=== PATIENT | female | born 1955 | race Hispanic/Latino ===

== ENCOUNTER 2018-06-19 08:16 | Emergency (ER) | payer OTHER ==
--- OUTSIDE RECORDS SUMMARY | 2018-06-19 08:19 | XMS REPORT | Summary of Care ---
:1955 Author Organization [facility] Address [address] [place] [id number]- Encounter HQ Kayleentr_luis manuel(FIN) [id number] Date(s): 02/15/17 - 02/15/[address] [address]- Discharge Disposition: Home or Self Care Attending Physician: Carlos Zhu MD Admitting Physician: Carlos Zhu MD Vital Signs No data available for this section Problem List Condition Effective Dates Status Health Status Informant HTN - Hypertension(Confirmed) Active OA - Osteoarthritis(Confirmed) Active Allergies, Adverse Reactions, Alerts Substance Reaction Severity Status NKDA Active Medications No data available for this section Results No data available for this section Immunizations No data available for this section Procedures Procedure Date Related Diagnosis Body Site Procedure on knee1 1bilateral Social History Social History Type Response Smoking Status Never smoker; Exposure to Tobacco Smoke None; Cigarette Smoking Last 365 Days No; Reg Smoking Cessation Counseling No Assessment and Plan No data available for this section
--- OUTSIDE RECORDS SUMMARY | 2018-06-19 08:19 | XMS REPORT | Continuity of Care Document ---
:1955 Author Organization Interface Problems Problem Status Onset Classification Date Comments Source Date Reported [id number]--UOIW KNEE Active 07/21/[address] LEFT KNEE PAIN Active 03/29/[address] 719.46 Active 03/29/[address] LEFT KNEE 715.96 Active 03/29/[address] HTN - Hypertension Active Problem 02/18/2017 [facility] OA - Active Problem 02/18/2017 [facility] Medications Medication Details Route Status Patient Ordering Order Source Instructions Provider Date Sodium Chloride 25 mL, Route: Inactive 0.9% IV IV, Start date: 2014 [facility] 08/01/[address] [facility] 11:25:00, Duration: 30 day, Stop date: 08/31/14 11:24:00, PRN Line Flush BD Normal Saline 10 mL, Route: Inactive Flush IV, Drug Form: 2014 [facility] INJ, PRN, PRN [facility] Line Flush, Start date: 08/01/14 11:25:00, Duration: 30 day, Stop date: 08/31/14 11:24:00Notes: (Same as: BD Posiflush) Tranexamic Acid 1 gm, Route: IV, Inactive Drug form: ANDREA 2014 [facility] ONCE, Dosing [facility] Weight 74.545, kg, Start date: 08/01/14 10:12:00, Stop date: 08/01/14 10:12:00 Aspirin 325 MG 325 mg=1 tab, Active Oral Tablet PO, BID, Take 1 2014 [facility] tablet at [address] [facility] and 8 PM with food for 14 days at home--this is being used as a blood thinner, # 28 tab, 0 Refill(s)Special Instructions: Take 1 tablet at 8 AM and 8 PM with food for 14 days at home--this is being used as a blood thinner Ancef 2 gm, 100 mL, Inactive Route: IVPB, 2014 [facility] Drug form: INJ, City ONCE, Dosing Weight 74.545, kg, Start date: 08/01/14 9:23:00, Duration: 1 doses or times, Stop date: 08/01/14 9:23:00Notes: Same as: Ancef Acetaminophen 325 1-2 tab, PO, Active MG / Hydrocodone Q4-6H, PRN Pain, 2014 [facility] Bitartrate 10 MG # 40 tab, [address] [facility] Oral Tablet Refill(s) [[place] 10/325] ropivacaine 100 mL, Route: Inactive InFILtration([facility] 2014 [facility] al), Drug Form: [facility] INJ, Dosing Weight 74.545, kg, ONCALL, Start date: 08/01/14 8:55:00, Duration: 30 day, Stop date: 08/31/14 8:54:00 Promethazine 6.25 mg, 0.25 Inactive mL, Route: IVPB, 2014 [facility] ONCE, Dosing [facility] Weight 74.545, kg, PRN Nausea & Vomiting, Start date: 08/01/14 7:28:00Notes: Do not give IV push. (Same as: Phenergan) Ondansetron 4 mg, 2 mL, Inactive Route: IVP, Drug 2014 [facility] form: INJ, ONCE, [facility] Dosing Weight 74.545, kg, PRN Nausea & Vomiting, Start date: 08/01/14 7:28:00Notes: (Same as: Zofran) MEDICATION WASTE Product Size: 4 mg Product Wasted: ___ mg Diphenhydramine 12.5 mg, 0.25 Inactive mL, Route: IVP, 2014 [facility] Drug form: INJ, City Q6H, Dosing Weight 74.545, kg, PRN Itching, Start date: 08/01/14 7:28:00, Duration: 30 day, Stop date: 08/31/14 7:27:00Notes: (Same as: Benadryl) Flumazenil 0.2 mg, 2 mL, Inactive Route: IVP, Drug 2014 [facility] form: INJ, PRN, [facility] Dosing Weight 74.545, kg, PRN Benzodiazepine Reversal, Initial dose, Start date: 08/01/14 7:28:00, Duration: 30 day, Stop date: 08/31/14 7:27:00Notes: (Same as: Romazicon) Naloxone 0.04 mg, 0.1 mL, Inactive Route: IVP, Drug 2014 [facility] form: INJ, City Q2MIN, Dosing Weight 74.545, kg, PRN Narcotic Reversal, Start date: 08/01/14 7:28:00, Duration: 8 doses or times, Stop date: Limited # of timesNotes: Same as Narcan Morphine 2 mg, 0.2 mL, Inactive Route: IVP, Drug 2014 [facility] form: INJ, City Q5Min, Dosing Weight 74.545, kg, PRN Pain Score 4-6, Start date: 08/01/14 7:28:00, Duration: 5 doses or times, Stop date: Limited # of timesNotes: (Same as:MORPhine Sulfate) Meperidine 12.5 mg, 0.25 Inactive mL, Route: IVP, 2014 [facility] Drug form: INJ, City Q30Min, Dosing Weight 74.545, kg, PRN Other -See Comment, For shivering, Start date: 08/01/14 7:28:00, Duration: 2 doses or times, Stop date: Limited # of timesNotes: (Same As: Demerol) Hydromorphone 0.5 mg, 0.25 mL, Inactive Route: IVP, Drug 2014 [facility] form: INJ, City Q5Min, Dosing Weight 74.545, kg, PRN Pain Score 7-10, Start date: 08/01/14 7:28:00, Duration: 4 doses or times, Stop date: Limited # of timesNotes: (Same as: Dilaudid) ceFAZolin 2 gm, 100 mL, Inactive Route: IVPB, 2014 [facility] Drug form: INJ, City ONCALL, Start date: 08/01/14 2:00:00, Duration: 19 hr, Stop date: 08/01/14 20:59:00Notes: Same as: Ancef cholesterol cholesterol Active [employer] [facility], 2014 [facility] Refill(s) [address] [facility] vimovo 500mg vimovo 500mg, No Longer Refill(s) 0 Active 2014 [facility] carvedilol 25 mg 25 mg=1 tab, PO, Active oral tablet Q12H, # 60 tab, 2014 [facility] 0 Refill(s) [facility] Allergies, Adverse Reactions, Alerts Substance Category Reaction Severity Reaction Status Date Comments Source type Reported Immunizations Immunization Date Given Site Status Last Updated Comments Source Results Order Name Results Value Reference Date Interpretation Comments Source Range Knee 1-2 Knee 1-2 EXAMINATION: Left knee AP and lateral. 02/15 - Views Views /2016 - [facility] unilateral [facility] DX DX HISTORY: Left knee pain; left knee arthritis Read by: Santana Stevens MD Dictated Date/time: 02/15/17 12:51 Electronically Signed by: Santana Stevens MD 02/15/17 12:52 FINAL REPORT FINDINGS: Frontal and lateral views of the left knee are performed and compared to 08/10/2014. There is a medial compartment, unicompartmental knee arthroplasty in unchanged near-anatomic alignment without periprosthetic fracture or osteolysis. There is progressive moderate patellofemoral compart ment osteoarthritis characterized by asymmetric joint space narrowing, subchondral sclerosis, and osteophytosis. The lateral joint space is normal. There is no substantial knee effusion. IMPRESSION: 1. Medial compartment, unit compartmental left knee arthroplasty in unchanged anatomic alignment. 2. Progressive moderate patellofemoral compartment osteoarthritis of the left knee. Knee 1-2 Knee 1-2 Left knee x-ray 2 views 08/10 - Views Views /2014 - [facility] DX DX Clinical History: Postsurgical evaluation. Read by: Valentin Samuels MD Dictated Date/time: 08/10/14 12:28 Electronically Signed by: Valentin Duke 08/10/14 12:30 FINAL REPORT Comparison: 06/04/2014. Left knee medial compartment hemiprosthesis in place. Femoral and tibial components are well aligned. There is no evidence for hardware failure. A small knee effusion is present. Patellofemoral and late ral knee compartments are maintained. A staple line projects over anterior medial knee. Impression: Status post left knee medial hemiprosthesis in good alignment. CHEM PANEL Glucose Lvl 101 mg/dL 70 - 99 07/27 1Interpretive Data: Adult reference range values reflect the clinical guidelines of the [place] [employer]. [facility] ELECTROLYTE Potassium 4.5 meq/L 3.5 - 5.1 07/27 S Lvl /2014 [facility] ELECTROLYTE Sodium Lvl 144 meq/L 135 - 145 07/27 S /2014 [facility] HEMATOLOGY Hgb 13.8 g/dL 12.0 - 07/27 MH 16.0 /2014 [facility] HEMATOLOGY Hct 40.9 % 36.0 - 07/27 MH 48.0 /2014 [facility] BACTERIAL - MRSA by PCR Negative 2 07/27 2Interpretive Data: Interpretive Data: The [employer] LightCycler MRSA assay is a qualitative test for the direct detection of nasal colonization with methicillin-resistant Staphylococcus aureus (MRSA) to aid in the prevention and control of MRSA infections in healthcare settings. A positive result does not indicate an infection or require treatment. A negative result does not exclude colonization or infection. [facility] (07/27/14 10:20 AM) [facility] The polymerase chain reaction (PCR) assay detects a proprietary sequence indicative of the integration of the SCCmec cassette into the Staphylococcus aureus chromosome, indicating the presence of MRSA D NA. The assay utilizes FDA cleared IVD reagents. Performance characteristics have been verified by the [facility] the [facility]. The [facility] at[facility] is authorized under the Clinical Laboratory Improvement Amendment of 1988 (CLIA-88) to perform high complexity testing. Knee 4+ Knee 4+ EXAM: 06/04 - views views - [facility] unilateral unilateral 4 view(s) of the left knee. [facility] DX DX Read by: Vince Dietrich MD Dictated Date/time: 06/04/14 15:39 INDICATION: Electronically Signed by: Vince Dietrich MD 06/04/14 15:44 FINAL REPORT Pain. COMPARISON: June 16, 2013 x-ray.. FINDINGS: Fracture: No acute fracture or dislocation. Soft tissues: No large soft tissue swelling or joint effusion. Medial compartment: Moderate to severe joint space narrowing. Mild to moderate subchondral sclerosis and osteophytes. This is substantial progressed. Lateral compartment: Intact. Patellofemoral compartment: Mild joint space narrowing. This is mildly progressed. Alignment: Straightened to mildly varus. IMPRESSION: 1. No acute fracture. 2. Progressed moderate to severe medial compartment degenerative change. Knee 3 Knee 3 Exam: Left knee x-ray, 4 views 06/16 - views /2013 - [facility] Reason for Exam: Pain Read by: Malcolm Rabago Dictated Date/time: 06/16/13 12:07 Electronically Signed by: Malcolm Rabago MD 06/16/13 12:08 FINAL REPORT Comparison Exam: None Discussion: No fractures or dislocations are seen of the left knee. Mild joint space narrowing seen within the medial compartment. No intraosseous lesions. No radiopaque foreign bodies. Impression: 1. Mild joint space narrowing seen within the medial compartment. Vital Signs Vital Sign Value Date Comments Source Respitory Rate 12 08/01/2014 [facility] Systolic (mm Hg) 150 08/01/2014 [facility] Diastolic (mm Hg) 72 08/01/2014 [facility] Systolic (mm Hg) 157 08/01/2014 [facility] Diastolic (mm Hg) 72 08/01/2014 [facility] Respitory Rate 11 08/01/2014 [facility] Systolic (mm Hg) 155 08/01/2014 [facility] Diastolic (mm Hg) 66 08/01/2014 [facility] Respitory Rate 14 08/01/2014 [facility] Heart Rate 62 08/01/2014 [facility] Height 154.94 cm 07/27/2014 [facility] Weight 74.545 07/27/2014 [facility] BMI Calculated 31.05 07/27/2014 [facility] Encounters Location Location Encounter Encounter Reason Attending ADM DC Status Source Details Type Number For Provider Date Date Visit [facility] [id number] _MAPID: Carlos 06/16 06/17 [facility] [id number] [facility]TR[facility] /2013 [facility] [id number] [address] Outpatient [id number] Carlos 06/04 06/05 [facility] /[address] [facility] [id number] Carlos 08/01 08/01 [facility] Surgery [facility] /2014 [facility] Outpatient [id number] Carlos 08/10 08/11 [facility] /[address] [facility] [id number] Carlos 02/15 02/16 [facility] /[address] [facility] Procedures Procedure Code Date Perfomer Comments Source Procedure on [id number] bilateral MH [facility] knee<sup></sup> [facility]
--- OUTSIDE RECORDS SUMMARY | 2018-06-19 08:19 | XMS REPORT | Summary of Care ---
:1955 Author Encounter HQ Encntr_alipeter(ALVINO) [id number] Date(s): 06/04/14 - 06/04/[address] [address]- Discharge Disposition: Home Physician Attending: Carlos Zhu MD Physician Admitting: Carlos Zhu MD Vital Signs No data available for this section Problem List No data available for this section Allergies, Adverse Reactions, Alerts No data available for this section Medications No data available for this section Results No data available for this section Immunizations No data available for this section Procedures No data available for this section Social History No data available for this section Assessment and Plan No data available for this section
--- OUTSIDE RECORDS SUMMARY | 2018-06-19 08:19 | XMS REPORT | Summary of Care ---
:1955 Author Encounter Dates Location Diagnoses Discharge Disposition Providers 06/16/[address] - [facility] Carlos Zhu 06/16/[address] [place] [address] Carlos Zhu [address] Reason for Visit LEFT KNEE PAIN Problem List No data available for this section Allergies, Adverse Reactions, Alerts No data available for this section Medications No data available for this section Medications Administered During Your Visit No data available for this section Immunizations No data available for this section
--- OUTSIDE RECORDS SUMMARY | 2018-06-19 08:20 | XMS REPORT | Summary of Care ---
:1955 Author Encounter HQ Ly_luis manuel(ALVINO) [id number] Date(s): 08/10/14 - 08/10/[address] [address]- Discharge Disposition: Home Physician Attending: Carlos Zhu [...]
--- OUTSIDE RECORDS SUMMARY | 2018-06-19 08:20 | XMS REPORT | Summary of Care ---
:1955 Author Encounter HQ Lucille(ALVINO) [id number] Date(s): 08/01/14 - 08/01/[address] [address]- Discharge Disposition: Home Physician Attending: Carlos Zhu MD Physician_Referring: Carlos Zhu MD Vital Signs Most recent to oldest 1 2 3 [Reference Range]: Height 154.94 cm (07/27/14 10:24 AM) Blood Pressure [90-140/60-90 150/72 mmHg 157/72 mmHg 155/66 mmHg mmHg] *HI* *HI* *HI* (08/01/14 12:15 PM) (08/01/14 12:00 PM) (08/01/14 11:45 AM) Respiratory Rate [14-20 BRMIN] 12 BRMIN 11 BRMIN 14 BRMIN *LOW* *LOW* (08/01/14 11:45 AM) (08/01/14 12:15 PM) (08/01/14 12:00 PM) Peripheral Pulse Rate [60-100 62 bpm bpm] (08/01/14 7:17 AM) Weight 74.545 kg (07/27/14 10:24 AM) Body Mass Index 31.05 m2 (07/27/14 10:24 AM) Problem List Condition Effective Dates Status Health Status Informant HTN - Hypertension(Confirmed) Active OA - Osteoarthritis(Confirmed) Active Allergies, Adverse Reactions, Alerts Substance Reaction Severity Status NKDA Active Medications Ancef 2 gm, 100 mL, Route: IVPB, Drug form: INJ, ONCE, Dosing Weight 74.545, kg, Start date: 08/01/14 9:23:00, Duration: 1 doses or times, Stop date: 08/01/14 9: 23:00 Notes: Same as: Ancef Start Date: 08/01/14 Stop Date: 08/01/14 Status: Completedaspirin 325 mg tablet 325 mg=1 tab, PO, BID, Take 1 tablet at 8 AM and 8 PM with food for 14 days at home--this is being used as a blood thinner, # 28 tab, 0 Refill(s) Special Instructions: Take 1 tablet at 8 AM and 8 PM with food for 14 days at home--this is being used as a blood thinner Start Date: 08/01/14 Stop Date: 08/15/14 Status: OrderedBD Normal Saline Flush 10 mL, Route: IV, Drug Form: INJ, PRN, PRN Line Flush, Start date: 08/01/14 11: 25:00, Duration: 30 day, Stop date: 08/31/14 11:24:00 Notes: (Same as: BD Posiflush) Start Date: 08/01/14 Stop Date: 08/01/14 Status: DiscontinuedBD Normal Saline Flush 5 mL, Route: IV, Drug Form: INJ, PRN, PRN Line Flush, Start date: 08/01/14 11:25 :00, Duration: 30 day, Stop date: 08/31/14 11:24:00 Notes: (Same as: BD Posiflush) Start Date: 08/01/14 Stop Date: 08/01/14 Status: Discontinuedcarvedilol 25 mg oral tablet 25 mg=1 tab, PO, Q12H, # 60 tab, 0 Refill(s) Start Date: 07/27/14 Status: OrderedceFAZolin 2 gm, 100 mL, Route: IVPB, Drug form: INJ, ONCALL, Start date: 08/01/14 2:00:00 , Duration: 19 hr, Stop date: 08/01/14 20:59:00 Notes: Same as: Ancef Start Date: 08/01/14 Stop Date: 08/01/14 Status: Completedcholesterol [facility], Refill(s) 0 Start Date: 07/27/14 Status: OrdereddiphenhydrAMINE 12.5 mg, 0.25 mL, Route: IVP, Drug form: INJ, Q6H, Dosing Weight 74.545, kg, PRN Itching, Start date: 08/01/14 7:28:00, Duration: 30 day, Stop date: 7:27:00 Notes: (Same as: Benadryl) Start Date: 08/01/14 Stop Date: 08/01/14 Status: Discontinuedflumazenil 0.2 mg, 2 mL, Route: IVP, Drug form: INJ, PRN, Dosing Weight 74.545, kg, PRN Benzodiazepine Reversal, Initial dose, Start date: 08/01/14 7:28:00, Duration: 30 day, Stop date: 08/31/14 7:27:00 Notes: (Same as: Romazicon) Start Date: 08/01/14 Stop Date: 08/01/14 Status: Discontinuedhydromorphone 0.5 mg, 0.25 mL, Route: IVP, Drug form: INJ, Q5Min, Dosing Weight 74.545, kg, PRN Pain Score 7-10, Start date: 08/01/14 7:28:00, Duration: 4 doses or times, Stop date: Limited # of times Notes: (Same as: Dilaudid) Start Date: 08/01/14 Stop Date: 08/01/14 Status: Discontinuedmeperidine 12.5 mg, 0.25 mL, Route: IVP, Drug form: INJ, Q30Min, Dosing Weight 74.545, kg, PRN Other -See Comment, For shivering, Start date: 08/01/14 7:28:00, Duration: 2 doses or times, Stop date: Limited # of times Notes: (Same As: Demerol) Start Date: 08/01/14 Stop Date: 08/01/14 Status: Discontinuedmorphine Sulfate 2 mg, 0.2 mL, Route: IVP, Drug form: INJ, Q5Min, Dosing Weight 74.545, kg, PRN Pain Score 4-6, Startdate: 08/01/14 7:28:00, Duration: 5 doses or times, Stop date: Limited # of times Notes: (Same as:MORPhine Sulfate) Start Date: 08/01/14 Stop Date: 08/01/14 Status: Discontinuednaloxone 0.04 mg, 0.1 mL, Route: IVP, Drug form: INJ, Q2MIN, Dosing Weight 74.545, kg, PRN Narcotic Reversal,Start date: 08/01/14 7:28:00, Duration: 8 doses or times, Stop date: Limited # of times Notes: Same as Narcan Start Date: 08/01/14 Stop Date: 08/01/14 Status: DiscontinuedNorco 10/325 oral tablet 1-2 tab, PO, Q4-6H, PRN Pain, # 40 tab, 0 Refill(s) Start Date: 08/01/14 Stop Date: 08/06/14 Status: Orderedondansetron 4 mg, 2 mL, Route: IVP, Drug form: INJ, ONCE, Dosing Weight 74.545, kg, PRN Nausea & Vomiting, Start date: 08/01/14 7:28:00 Notes: (Same as: Zofran) MEDICATION WASTE Product Size: 4 mgProduct Wasted: ___ mg Start Date: 08/01/14 Stop Date: 08/01/14 Status: Completedpromethazine + Sodium Chloride 0.9% IV 50 mL 6.25 mg, 0.25 mL, Route: IVPB, ONCE, Dosing Weight 74.545, kg, PRN Nausea & Vomiting, Start date: 08/01/14 7:28:00 Notes: Do not give IV push. (Same as: Phenergan) Start Date: 08/01/14 Stop Date: 08/01/14 Status: CompletedRECK Pericapsular INJ 100 mL, Route: InFILtration(local), Drug Form: INJ, Dosing Weight 74.545, kg, ONCALL, Start date: 08/01/14 8:55:00, Duration: 30 day, Stop date: 08/31/14 8:54 :00 Start Date: 08/01/14 Stop Date: 08/01/14 Status: CompletedSodium Chloride 0.9% IV 25 mL, Route: IV, Start date: 08/01/14 11:25:00, Duration: 30 day, Stop date: 11:24:00, PRNLine Flush Start Date: 08/01/14 Stop Date: 08/01/14 Status: Discontinuedtranexamic acid 1 gm, Route: IV, Drug form: SOLN, ONCE, Dosing Weight 74.545, kg, Start date: 10:12:00, Stop date: 08/01/14 10:12:00 Start Date: 08/01/14 Stop Date: 08/01/14 Status: Completedtranexamic acid 1 gm, Route: IV, Drug form: SOLN, ONCE, Dosing Weight 74.545, kg, Start date: 10:12:00, Stop date: 08/01/14 10:12:00 Start Date: 08/01/14 Stop Date: 08/01/14 Status: Completedvimovo 500mg vimovo 500mg, Refill(s) 0 Start Date: 07/27/14 Stop Date: 08/01/14 Status: Discontinued Results ELECTROLYTES Most recent to oldest [Reference Range]: 1 Sodium Lvl [135-145 mEq/L] 144 mEq/L (07/27/14 10:41 AM) Potassium Lvl [3.5-5.1 mEq/L] 4.5 mEq/L (07/27/14 10:41 AM) CHEM PANEL Most recent to oldest [Reference Range]: 1 Glucose Lvl [70-99 mg/dL] 101 mg/dL 1 *HI* (07/27/14 10:41 AM) 1Interpretive Data: Adult reference range values reflect the clinical guidelines of the [place] [employer].HEMATOLOGY Most recent to oldest [Reference Range]: 1 Hgb [12.0-16.0 g/dL] 13.8 g/dL (07/27/14 10:41 AM) Hct [36.0-48.0 %] 40.9 % (07/27/14 10:41 AM) BACTERIAL - SEROLOGY Most recent to oldest [Reference Range]: 1 MRSA by PCR Negative 2 (07/27/14 10:20 AM) 2Interpretive Data: Interpretive Data: The [employer] LightCycler MRSA assay is a qualitative test for thedirect detection of nasal colonization with methicillin- resistant Staphylococcus aureus (MRSA) to aid in the prevention and control of MRSA infections in healthcare settings. A positive result does notindicate an infection or require treatment. A negative result does not exclude colonization or infection. The polymerase chain reaction (PCR) assay detects a proprietary sequence indicative of the integration of the SCCmec cassette into the Staphylococcus aureus chromosome, indicating the presence of MRSA DNA. The assay utilizes FDA cleared IVD reagents. Performance characteristics have been verified by the [facility] within the [facility]. The Molecular Diagnostic Laboratory is authorized under the Clinical Laboratory Improvement Amendment of 1988 (CLIA-88) to performhigh complexity testing. Immunizations No data available for this section Procedures Procedure Date Related Diagnosis Body Site Procedure on knee1 1bilateral Social History Social History Type Response Smoking Status Never smoker; Exposure to Tobacco Smoke None; Cigarette Smoking Last 365 Days No; Reg Smoking Cessation Counseling No Assessment and Plan No data available for this section
[2018-06-19 09:12] LABS: Urine Blood TRACE (NEG); Urine Glucose NEGATIVE (NEG); Urine Protein NEGATIVE (NEG); Urine pH 6.5 (5.0-7.0)
[2018-06-19] MEDS ORDERED: ONDANSETRON 4 MG/2 ML VIAL ONE (09:16)
[2018-06-19] MEDS ORDERED: NA CHLORIDE 0.9% 1,000 ML ONE (09:16)
[2018-06-19] MEDS ORDERED: CEFTRIAXONE/SWI 1gm 1 GM/10 ML SYR ONE (09:16)
[2018-06-19] MEDS ORDERED: KETOROLAC 30 MG/ML INJ ONE (09:16)
[2018-06-19 09:34] LABS: Absolute Lymphocytes (CBC) 2.3 K/uL (0.7-4.9); Absolute Monocytes 0.6 K/uL (0.1-1.3); Absolute Neutrophil 3.2 K/uL (1.8-8.0); Eosinophils % 2.2 % (0-4.4); Hematocrit 41.4 % (36.0-45.0); Lymphocytes % 36.9 % (15.3-44.8); MPV 10.1 fL (7.6-11.3)
--- NOTE | 2018-06-19 09:57 | RAD REPORT ---
EXAM DESCRIPTION: CT - Stone Protocol - 06/19/2018 9:39 am CLINICAL HISTORY: Flank pain. Abd pain;Flank pain COMPARISON: No comparisons TECHNIQUE: Axial images were obtained without oral or IV contrast. Lack of contrast limits solid org an and vascular assessment. The [id number] spans the entirety of the system partially obscuring uppermost abdomen and lung bases. Coronal reformatted images were obtained and reviewed. All CT scans are performed using dose optimization technique as appropriate and may include automated exposure control or mA/KV adjustment according to patient size. FINDINGS: The lower lung castelan are clear. Imaged portions of the liver and spleen show no suspicious findings on non-contrast imaging. The panc reas and adrenal glands are normal. No pathologic lymphadenopathy in the abdomen or pelvis. No urinary tract stones or obstructive uropathy. No bowel obstruction, free air, free fluid or abscess. Normal appendix noted. No significant bony abnormality. IMPRESSION: No urinary tract stones or obstructive uropathy.
[2018-06-19 10:14] LABS: Bilirubin Direct 0.1 mg/dL (0-0.2); Bilirubin Total 0.5 mg/dL (0.2-1.0); Potassium 4.2 mmol/L (3.5-5.1); Protein, Total 7.3 g/dL (6.4-8.2)
--- NOTE | 2018-06-19 10:38 | ER ---
Nurse's Notes [facility] Name: Mili Saeed Age: 62 yrs Sex: Female : 1955 Arrival Date: 06/19/2018 Time: 08:18 Bed 20 Private MD: Diagnosis: Urinary tract infection, site not specified Presentation: 06/19 08:36 Presenting complaint: Patient states: L low back pain x 1 week. Pt reports the pain is ss worse when she bends over and repositions. Pain is described as a "pulled muscle" sensation, but patient is concerned it may be a kidney stone. Denies urinary s/s. Transition of care: patient was not received from another setting of care. Onset of symptoms was June 12, 2018. Risk Assessment: Do you want to hurt yourself or someone else? Patient reports no desire to harm self or others. Initial Sepsis Screen: Does the patient meet any 2 criteria? No. Patient's initial sepsis screen is negative. Does the patient have a suspected source of infection? No. Patient's initial sepsis screen is negative. Care prior to arrival: None. 08:36 Method Of Arrival: Ambulatory ss 08:36 Acuity: GIDEON 3 ss Historical: - Allergies: 08:38 No Known Allergies; ss - PMHx: 08:38 Hypertension; High Cholesterol; ss - PSHx: 08:38 Knee surgery; ss - Immunization history:: Adult Immunizations up to date. - Social history:: Smoking status: Patient/guardian denies using tobacco. - Ebola Screening: : Patient denies exposure to infectious person Patient denies travel to an Ebola-affected area in the 21 days before illness onset. Screenin:46 Abuse screen: Denies threats or abuse. Nutritional screening: No deficits noted. tw2 Tuberculosis screening: No symptoms or risk factors identified. Fall Risk None identified. Assessment: 09:10 General: Appears uncomfortable, well groomed, Behavior is calm, cooperative, tw2 appropriate for age. Pain: Complains of pain in left low back and left mid back. Neuro: Level of Consciousness is awake, alert, obeys commands, Oriented to person, place, time, situation. Cardiovascular: Heart tones S1 S2 Patient's skin is warm and dry. Respiratory: Airway is patent Respiratory effort is even, unlabored, Respiratory pattern is regular, symmetrical, Breath sounds are clear bilaterally. GI: Abdomen is round non-distended, Bowel sounds present X 4 quads. : Reports taking AZO otc for a week and it helped the first 2 days. Denies burning with urination, urinary frequency, urgency. EENT: No signs and/or symptoms were reported regarding the EENT system. Derm: No signs and/or symptoms reported regarding the dermatologic system. Musculoskeletal: Range of motion: intact in all extremities. 09:54 Reassessment: Patient appears in no apparent distress at this time. Patient and/or tw2 family updated on plan of care and expected duration. Pain level reassessed. Patient is alert, oriented x 3, equal unlabored respirations, skin warm/dry/pink. Patient states feeling better. 12:00 Reassessment: Patient appears in no apparent distress at this time. No changes from tw2 previously documented assessment. Patient and/or family updated on plan of care and expected duration. Pain level reassessed. Patient is alert, oriented x 3, equal unlabored respirations, skin warm/dry/pink. Vital Signs: 08:38 BP 170 / 75; Pulse 68; Resp 16; Temp 97.7(O); Pulse Ox 96% on R/A; Weight 72.57 kg; ss Height 5 ft. 1 in. (154.94 cm); Pain 10/10; 09:54 BP 142 / 50; Pulse 58; Resp 17; Pulse Ox 98% on R/A; Pain 7/10; tw2 11:17 BP 146 / 58; Pulse 63; Resp 17; Pulse Ox 100% on R/A; tw2 08:38 Body Mass Index 30.23 (72.57 kg, 154.94 cm) ED Course: 08:18 Patient arrived in ED. mr 08:37 Triage completed. ss 08:38 Arm band placed on right wrist. ss 08:45 Elle Barcenas, RN is Primary Nurse. tw2 08:46 Bed in low position. Call light in reach. Pulse ox on. NIBP on. tw2 08:54 Jean Apple MD is Attending Physician. [facility] 09:10 Inserted saline lock: 22 gauge in right antecubital area, using aseptic technique. tw2 Blood collected. 09:39 CT Stone Protocol In Process Unspecified. EDMS 09:48 CT completed. Patient tolerated procedure well. Patient moved back from CT. kw1 11:59 No provider procedures requiring assistance completed. IV discontinued, intact, tw2 bleeding controlled, No redness/swelling at site. Pressure dressing applied. Administered Medications: 09:05 Not Given (ivp available only from pharmacy): Rocephin - (cefTRIAXone) 1 grams IVPB tw2 once over 30 mins; (mix in 50 mL NS) 09:10 Drug: NS 0.9% 1000 ml Route: IV; Rate: 1 bolus; Site: right antecubital; tw2 11:50 Follow up: Response: No adverse reaction; IV Status: Completed infusion; IV Intake: tw2 1000ml 09:11 Drug: Zofran 4 mg Route: IVP; Site: right antecubital; tw2 10:03 Follow up: Response: No adverse reaction tw2 09:13 Drug: TORadol 30 mg Route: IVP; Site: right antecubital; tw2 10:04 Follow up: Response: No adverse reaction; Pain is decreased tw2 09:15 Drug: Rocephin 1 grams Route: IV; Rate: bolus; Site: right antecubital; tw2 09:20 Follow up: Response: No adverse reaction; IV Status: Completed infusion tw2 Intake: 11:50 IV: 1000ml; Total: 1000ml. tw2 Outcome: 10:37 Discharge ordered by MD. parker 11:59 Discharged to home ambulatory. tw2 11:59 Condition: stable 11:59 Discharge instructions given to patient, Instructed on discharge instructions, follow up and referral plans. no drinking with medication, no driving heavy equipment, medication usage, Demonstrated understanding of instructions, follow-up care, medications, Prescriptions given X 2. 12:00 Patient left the ED. tw2 Signatures: Dispatcher [employer] EDMS Jean Apple MD MD cha Rivera, Arabella mr Shania Klein RN RN ss Wise, Tara, RN RN tw2 Payton Kimbrough kw1
--- NOTE | 2018-06-19 10:38 | EDPHYS ---
Physician Documentation [facility] Name: Mili Saeed Age: 62 yrs Sex: Female : 1955 Arrival Date: 06/19/2018 Time: 08:18 Bed 20 Private MD: ED Physician Jean Apple HPI: 06/19 09:35 This 62 yrs old Female presents to ER via Ambulatory with complaints of Flank elena Pain. 09:35 The patient complains of pain in the right mid back and right low back. The pain elena radiates to the right mid back and right low back. Onset: The symptoms/episode began/occurred 2 day(s) ago. Modifying factors: The symptoms are alleviated by remaining still, the symptoms are aggravated by movement. Associated signs and symptoms: The patient has no apparent associated signs or symptoms. Severity of pain: At its worst the pain was mild in the emergency department the pain is unchanged. The patient has not experienced similar symptoms in the past. Historical: - Allergies: 08:38 No Known Allergies; ss - PMHx: 08:38 Hypertension; High Cholesterol; ss - PSHx: 08:38 Knee surgery; ss - Immunization history:: Adult Immunizations up to date. - Social history:: Smoking status: Patient/guardian denies using tobacco. - Ebola Screening: : Patient denies exposure to infectious person Patient denies travel to an Ebola-affected area in the 21 days before illness onset. ROS: 09:36 Constitutional: Negative for fever, chills, and weight loss, Eyes: Negative for injury, elena pain, redness, and discharge, ENT: Negative for injury, pain, and discharge, Neck: Negative for injury, pain, and swelling, Cardiovascular: Negative for chest pain, palpitations, and edema, Respiratory: Negative for shortness of breath, cough, wheezing, and pleuritic chest pain, Abdomen/GI: Negative for abdominal pain, nausea, vomiting, diarrhea, and constipation, : Negative for injury, bleeding, discharge, and swelling, MS/Extremity: Negative for injury and deformity, Skin: Negative for injury, rash, and discoloration, Neuro: Negative for headache, weakness, numbness, tingling, and seizure, Psych: Negative for depression, anxiety, suicide ideation, homicidal ideation, and hallucinations, Allergy/Immunology: Negative for hives, rash, and allergies, Endocrine: Negative for neck swelling, polydipsia, polyuria, polyphagia, and marked weight changes, Hematologic/Lymphatic: Negative for swollen nodes, abnormal bleeding, and unusual bruising. 09:36 Back: Positive for decreased range of motion, pain at rest, flank pain, on the right. Exam: 09:36 Constitutional: This is a well developed, well nourished patient who is awake, alert, elena and in no acute distress. Head/Face: Normocephalic, atraumatic. Eyes: Pupils equal round and reactive to light, extra-ocular motions intact. Lids and lashes normal. Conjunctiva and sclera are non-icteric and not injected. Cornea within normal limits. Periorbital areas with no swelling, redness, or edema. ENT: Nares patent. No nasal discharge, no septal abnormalities noted. Tympanic membranes are normal and external auditory canals are clear. Oropharynx with no redness, swelling, or masses, exudates, or evidence of obstruction, uvula midline. Mucous membranes moist. Neck: Trachea midline, no thyromegaly or masses palpated, and no cervical lymphadenopathy. Supple, full range of motion without nuchal rigidity, or vertebral point tenderness. No Meningismus. Chest/axilla: Normal chest wall appearance and motion. Nontender with no deformity. No lesions are appreciated. Cardiovascular: Regular rate and rhythm with a normal S1 and S2. No gallops, murmurs, or rubs. Normal PMI, no JVD. No pulse deficits. Respiratory: Lungs have equal breath sounds bilaterally, clear to auscultation and percussion. No rales, rhonchi or wheezes noted. No increased work of breathing, no retractions or nasal flaring. Abdomen/GI: Soft, non-tender, with normal bowel sounds. No distension or tympany. No guarding or rebound. No evidence of tenderness throughout. Skin: Warm, dry with normal turgor. Normal color with no rashes, no lesions, and no evidence of cellulitis. MS/ Extremity: Pulses equal, no cyanosis. Neurovascular intact. Full, normal range of motion. Neuro: Awake and alert, GCS 15, oriented to person, place, time, and situation. Cranial nerves II-XII grossly intact. Motor strength 5/5 in all extremities. Sensory grossly intact. Cerebellar exam normal. Normal gait. Psych: Awake, alert, with orientation to person, place and time. Behavior, mood, and affect are within normal limits. 09:36 Back: pain, that is mild, that is moderate, ROM is painful, with rotation to the right, with rotation to the left, normal spinal alignment noted, CVA tenderness, that is mild, is noted on the right, vertebral tenderness, is not appreciated, muscle spasm, is not present. 10:18 Skin: no rash present. [facility] Vital Signs: 08:38 BP 170 / 75; Pulse 68; Resp 16; Temp 97.7(O); Pulse Ox 96% on R/A; Weight 72.57 kg; ss Height 5 ft. 1 in. (154.94 cm); Pain 10/10; 09:54 BP 142 / 50; Pulse 58; Resp 17; Pulse Ox 98% on R/A; Pain 7/10; tw2 11:17 BP 146 / 58; Pulse 63; Resp 17; Pulse Ox 100% on R/A; tw2 08:38 Body Mass Index 30.23 (72.57 kg, 154.94 cm) ss MDM: 08:54 Patient medically screened. [facility] 09:36 Data reviewed: vital signs, nurses notes, lab test result(s), EKG, radiologic studies, [facility] CT scan, plain films. 06/19 08:57 Order name: Basic Metabolic Panel; Complete Time: 10:17 [facility] 06/19 08:57 Order name: CBC with Diff; Complete Time: 10:13 [facility] 06/19 08:57 Order name: Creatinine for Radiology; Complete Time: 10:13 [facility] 06/19 08:57 Order name: Hepatic Function; Complete Time: 10:17 [facility] 06/19 08:57 Order name: Lipase; Complete Time: 10:17 [facility] 06/19 08:57 Order name: Urine Culture [facility] 06/19 08:57 Order name: IV Saline Lock; Complete Time: 09:29 [facility] 06/19 08:57 Order name: CT Stone Protocol; Complete Time: 10:13 [facility] 06/19 08:59 Order name: Urine Dipstick--Ancillary (enter results); Complete Time: 10:13 06/19 08:57 Order name: Labs collected and sent; Complete Time: 09:28 [facility] 06/19 08:57 Order name: Urine Dipstick-Ancillary (obtain specimen); Complete Time: 09:28 elena Administered Medications: 09:05 Not Given (ivp available only from pharmacy): Rocephin - (cefTRIAXone) 1 grams IVPB tw2 once over 30 mins; (mix in 50 mL NS) 09:10 Drug: NS 0.9% 1000 ml Route: IV; Rate: 1 bolus; Site: right antecubital; tw2 11:50 Follow up: Response: No adverse reaction; IV Status: Completed infusion; IV Intake: tw2 1000ml 09:11 Drug: Zofran 4 mg Route: IVP; Site: right antecubital; tw2 10:03 Follow up: Response: No adverse reaction tw2 09:13 Drug: TORadol 30 mg Route: IVP; Site: right antecubital; tw2 10:04 Follow up: Response: No adverse reaction; Pain is decreased tw2 09:15 Drug: Rocephin 1 grams Route: IV; Rate: bolus; Site: right antecubital; tw2 09:20 Follow up: Response: No adverse reaction; IV Status: Completed infusion tw2 Disposition: 06/19/18 10:37 Discharged to Home. Impression: Urinary tract infection, site not specified. - Condition is Stable. - Discharge Instructions: Dysuria, Urinary Tract Infection, Adult, Urinary Tract Infection, Adult, [id number]. - Prescriptions for Cipro 250 mg Oral Tablet - take 1 tablet by ORAL route every 12 hours; 14 tablet. Tylenol- Codeine #3 300-30 mg Oral Tablet - take 2 tablets by ORAL route every 6 hours As needed; 24 tablet. - Medication Reconciliation Form, Thank You Letter, Antibiotic Education, Prescription Opioid Use form. - Follow up: Private Physician; When: 1 - 2 days; Reason: Recheck today's complaints, Continuance of care, Re-evaluation by your physician. - Problem is new. - Symptoms have improved. Signatures: Dispatcher [employer] EDJean Howard MD MD cha Smirch, Shelby, RN RN Elle Al RN RN tw2 Corrections: (The following items were deleted from the chart) 12:00 10:37 06/19/2018 10:37 Discharged to Home. Impression: Urinary tract infection, site tw2 not specified. Condition is Stable. Discharge Instructions: Dysuria, Urinary Tract Infection, Adult, Urinary Tract Infection, Adult, [id number]. Prescriptions for Cipro 250 mg Oral Tablet - take 1 tablet by ORAL route every 12 hours; 14 tablet, Tylenol-Codeine #3 300-30 mg Oral Tablet - take 2 tablets by ORAL route every 6 hours As needed; 24 tablet. and Forms are Medication Reconciliation Form, Thank You Letter, Antibiotic Education, Prescription Opioid Use. Follow up: Private Physician; When: 1 - 2 days; Reason: Recheck today's complaints, Continuance of care, Re-evaluation by your physician. Problem is new. Symptoms have improved. elena
== END 2018-06-19 12:00 | disposition home or self-care (01) ==
LOC: ER 08:16
DX: N39.0 Urinary tract infection, site not specified (principal)
CPT/HCPCS: 36415; 74176; 76377; 80048; 80076; 81003; 83690; 85025; 87086; 87088; 96361; 96374; 96375; 99284; J0696; J2405; J7030

== ENCOUNTER 2021-01-22 07:04 | Day surgery (SDC) | payer OTHER ==
[2021-01-22] MEDS ORDERED: Ringers Lactate 1,000 ML IV ONE (07:35)
[2021-01-22] MEDS ORDERED: LIDOCAINE 1% MPF 5 ML VIAL ONE (08:19)
[2021-01-22] MEDS ORDERED: propofoL 200 MG/20 ML VIAL IV ONE (08:19)
--- NOTE | 2021-01-22 08:26 | ENDO RPT ---
[address], [address] COLONOSCOPY PROCEDURE REPORT EXAM DATE: 01/22/2021 PATIENT NAME: Mili Saeed MR #: [id number] BIRTHDATE: 1955 ATTENDING: Pradip Reid DR STATUS: outpatient EDUCATION RESEARCH ANALYST: Vanda Caputo RN and Dariana Murrell RN INDICATIONS: The patient is a 65 yr old Female here for a colonoscopy due to colon cancer screening PROCEDURE PERFORMED: Colonoscopy and Screening Colonoscopy MEDICATIONS: Per Anesthesia. ESTIMATED BLOOD LOSS: None CONSENT: The patient understands the risks and benefits of the procedure and understands that these risks include, but are not limited to: sedation, allergic reaction, infection, perforation and/or bleeding. Alternative means of evaluation and treatment include, among others: physical exam, x-rays, and/or surgical intervention. The patient elects to proceed with this endoscopic procedure. DESCRIPTION OF PROCEDURE: During intra-op preparation period all mechanical medical equipment was checked for proper function. Hand hygiene and appropriate measures for infection prevention was taken. Procedure, possible complications, alternatives including, but not limited to possibility of bleeding, perforation, tear, infection, sepsis, need for surgery, need for blood transfusion, were explained to the patient. After the risks, benefits and alternatives of the procedure were thoroughly explained, Informed consent was verified, confirmed and timeout was successfully executed by the treatment team. The patient was placed in the left lateral position. A digital rectal exam was performed and revealed internal hemorrhoids. After appropriate level of anesthesia, the scope was passed. The EC-[id number] ([id number]) endoscope was introduced through the anus and advanced to the cecum, which was identified by both the appendix and ileocecal valve. The quality of the prep was fair. The instrument was then slowly withdrawn as the colon was fully examined. Scope withdrawal time was 9 minutes. COLON FINDINGS: Mild diverticulosis - very few 4 noted in entire colon, were noted throughout the entire examined colon. No bleeding was noted from the diverticulosis. Small internal hemorrhoids were found. Retroflexed views revealed no abnormalities. The scope was then completely withdrawn from the patient and the procedure terminated. ADVERSE EVENTS: There were no complications. IMPRESSIONS: 1. Mild diverticulosis was noted throughout the entire examined colon 2. Small internal hemorrhoids RECOMMENDATIONS: 1. avoid NSAIDS for 2 weeks 2. await biopsy results 3. follow-up: office 2 week(s) 4. Monitor for any evidence of rectal bleeding. 5. yearly hemoccult starting in 4 years 6. hemorrhoidal hygiene RECALL: Return in 5 year(s) for Colonoscopy. Fecal DNA test in [address] eSigned: Pradip Reid DR 01/22/2021 8:26 AM cc: CPT CODES: ICD9 CODES: PATIENT NAME: Mili Saeed MR#: [id number]
[2021-01-22 08:53] VITALS: O2SAT 100
[2021-01-22 08:55] VITALS: BP 121/85; TEMP 97.4
== END 2021-01-22 09:05 | disposition home or self-care (01) ==
LOC: OR 07:04
PROVIDERS: ATTEND Surgery
PROC: 0DJD8ZZ Inspection of Lower Intestinal Tract, Via Natural or Artificial Opening Endoscopic (ICD-10-PCS; principal; 2021-01-22 08:00)
DX: Z12.11 Encounter for screening for malignant neoplasm of colon (principal); Z20.822 Contact with and (suspected) exposure to COVID-19; K64.8 Other hemorrhoids; K57.30 Diverticulosis of large intestine without perforation or abscess without bleeding
CPT/HCPCS: U0003; J2704; J7120; G0121

== ENCOUNTER 2021-11-27 08:30 | Day surgery (SDC) | payer OTHER ==
[2021-11-25 14:25] LABS: Absolute Lymphocytes (CBC) 2.9 K/uL (0.7-4.9); Hematocrit 38.4 % (36.0-45.0); MCV 93.3 fL (80-100); MPV 9.8 fL (7.6-11.3); RBC Red Blood Cell Count 4.11 M/uL (3.86-4.86)
[2021-11-25 14:29] LABS: Protime INR 0.98; SARS-CoV-2 Antigen Rapid Res Negative (Negative)
--- NOTE | 2021-11-25 14:46 | RAD REPORT ---
EXAM DESCRIPTION: RAD - Chest Pa And Lat (2 Views) - 11/25/2021 2:16 pm CLINICAL HISTORY: pre op COMPARISON: Chest Pa And Lat (2 Views) dated 09/16/2020; CHEST PA AND LAT 2 VIEW dated 07/07/2011 FINDINGS: Lines: None. Lungs: No evidence of edema or pneumonia. Pleural: No significant pleural effusions or pneumothorax. Cardiac: The heart size is within normal limits. Mediastinum: Within normal limits. Bones: No acute fractures. Scoliosis . Other: None IMPRESSION: No acute cardiopulmonary disease.
--- NOTE | 2021-11-26 18:29 | EKG ---
Test Date: 2021-11-25 Test Time: 13:58:57 Asbestos Removal Supervisor: BURTON MEASUREMENT RESULTS: Intervals: Rate: 51 TN: 152 QRSD: 76 QT: 434 QTc: 400 [place]: P: 64 TN: 152 QRS: 0 T: 24 INTERPRETIVE STATEMENTS: Sinus bradycardia Otherwise normal ECG Compared to ECG 09/16/2020 12:38:15 Sinus rhythm no longer present Sinus arrhythmia no longer present ST (T wave) deviation no longer present Electronically Signed On 11-26-21 18:28:09 CDT by Regis Lynch
[2021-11-27] MEDS ORDERED: NA CHLORIDE 0.9% 500 ML ONE (08:50)
[2021-11-27] MEDS ORDERED: MIDAZOLAM HCL 2 MG/2 ML INJ ONE (09:30)
[2021-11-27] MEDS ORDERED: FENTANYL CITR 100 MCG/2 ML ONE (09:30)
[2021-11-27] MEDS ORDERED: ATROPINE SULF 1 MG/10 ML SYR IV ONE (09:34)
[2021-11-27] MEDS ORDERED: HEPA 1000U/500MLS 2,000 UNIT/1,000 ML BAG IV ONE (09:34)
[2021-11-27] MEDS ORDERED: HEPA 1000U/500MLS 1,000 UNIT/500 ML BAG IV ONE (10:21)
--- NOTE | 2021-11-27 10:28 | OP ---
Date of Procedure: 11/27/2021 Surgeon: Regis Lynch MD Multifold Operator: Ms. Lucy Dotson. Admitted as an outpatient today to the oil laboratory analyst. Procedure Performed: Left heart catheterization, selective coronary arteriogram, common femoral jorge ry angiogram. Indication: Unstable angina. Description Of Procedure: Patient was prepped and draped in routine sterile fashion. Given Versed a nd fentanyl for sedation. 6-Burkinan sheath introduced in the right common femoral artery successfully using the Seldinger technique and 10 cc of Xylocaine. Angiography there was normal. StarClose was used to close the case. Alvaro catheter left and right were used to cannulate the left main and rig ht main respectively. She was found to have normal coronaries. There were no complications. Blood Loss: 5 cc. Postoperative Diagnoses: Chest pain. Normal coronaries. Plan: For medical therapy. Total Conscious Sedation: 30 minutes. Patient will stay in the hospital for 2 hours of bedrest after her StarClose. She can go home after that. She will see me in the office in 2 weeks. ASIYA/CRIS Voice ID: [id number] Report ID: [id number]
[2021-11-27 12:11] VITALS: BP 131/47; O2SAT 95
== END 2021-11-27 12:21 | disposition home or self-care (01) ==
LOC: CCL 08:30
DX: R07.9 Chest pain, unspecified (principal); I10 Essential (primary) hypertension; E78.2 Mixed hyperlipidemia; M81.0 Age-related osteoporosis without current pathological fracture; R25.1 Tremor, unspecified; Z79.899 Other long term (current) drug therapy; Z20.822 Contact with and (suspected) exposure to COVID-19
CPT/HCPCS: 36415; 71046; 80048; 85025; 85610; 85730; 87811; 93005; 93454; C1893; J1644; J2250; J3010; J7040; Q9966

== ENCOUNTER 2022-08-07 06:28 | Emergency (ER) | payer OTHER ==
[2022-08-07] MEDS ORDERED: HYDROCODONE/APAP 7.5/325 MG TAB ONE (07:36)
--- NOTE | 2022-08-07 08:09 | RAD REPORT ---
EXAM DESCRIPTION: RAD - Knee Left 3 View - 08/07/2022 7:58 am CLINICAL HISTORY: PAIN COMPARISON: No comparisons FINDINGS/IMPRESSION: Distracted and angulated fracture at the patella. There is approximately 14 mil limeters of distraction. The fracture is probably comminuted with a longitudinal component as well as transverse component that is best seen on the AP view. Medial unicompartmental arthroplasty intact. Soft tissue swelling. Knee effusion.
--- NOTE | 2022-08-07 08:21 | EDPHYS ---
Physician Documentation [facility] Name: Mili Saeed Age: 66 yrs Sex: Female : 1955 Arrival Date: 08/07/2022 Time: 06:28 Bed 18 Private MD: ED Physician Asael Orantes HPI: 08/07 08:14 This 66 yrs old Female presents to ER via Wheelchair with complaints of Fall kdr Injury, Knee Injury. 08:15 Patient fell a few hours ago on her left knee which was previously augmented with knee kdr replacement several years ago. Patient complains of pain and is unable to bear weight on her left leg. She denies any other injuries.. Onset: The symptoms/episode began/occurred suddenly, this morning. Severity of symptoms: At their worst the symptoms were moderate in the emergency department the symptoms are unchanged. The patient has not experienced similar symptoms in the past. The patient has not recently seen a physician. Historical: - Allergies: 06:55 No Known Allergies; ha1 - PMHx: 06:55 High Cholesterol; Hypertension; ha1 - PSHx: 06:55 knee replacement; ha1 - Immunization history:: Adult Immunizations unknown. - Social history:: Smoking status: Patient denies any tobacco usage or history of. ROS: 08:15 Constitutional: Negative for fever, chills, and weight loss, Eyes: Negative for injury, kdr pain, redness, and discharge, ENT: Negative for injury, pain, and discharge, Neck: Negative for injury, pain, and swelling, Cardiovascular: Negative for chest pain, palpitations, and edema, Respiratory: Negative for shortness of breath, cough, wheezing, and pleuritic chest pain, Abdomen/GI: Negative for abdominal pain, nausea, vomiting, diarrhea, and constipation, Back: Negative for injury and pain, : Negative for injury, bleeding, discharge, and swelling, Skin: Negative for injury, rash, and discoloration, Neuro: Negative for headache, weakness, numbness, tingling, and seizure activity. Psych: Negative for depression, anxiety, suicide ideation, homicidal ideation, and hallucinations, Allergy/Immunology: Negative for hives, rash, and allergies, Endocrine: Negative for neck swelling, polydipsia, polyuria, polyphagia, and marked weight changes, Hematologic/Lymphatic: Negative for swollen nodes, abnormal bleeding, and unusual bruising. 08:15 MS/extremity: Positive for injury or acute deformity, decreased range of motion, pain, tenderness, of the left knee. Exam: 08:16 Constitutional: This is a well developed, well nourished patient who is awake, alert, kdr and in no acute distress. 08:16 Musculoskeletal/extremity: Extremities: grossly normal except: noted in the left knee: contusion, decreased ROM, pain. Vital Signs: 06:51 BP 146 / 60; Pulse 73; Resp 16 S; Temp 97.8; Pulse Ox 98% on R/A; Weight 76.2 kg; ha1 Height 5 ft. 1 in. ; Pain 10/10; 06:51 Body Mass Index 31.74 (76.20 kg, 154.94 cm) ha1 06:51 Pain Scale: Adult ha1 MDM: 08:20 Patient medically screened. kdr 08:32 Data reviewed: vital signs, nurses notes, lab test result(s), radiologic studies. ED kdr course: I discussed with Dr. Bhatti that he indicated given that she has had prior knee replacement that she should follow-up with the surgeon who took care of that procedure previously to have this repaired. Patient was informed of this and will follow up. Patient is otherwise happy with the care provided the plan for discharge and follow-up. 08/07 07:20 Order name: Knee Left 3 View XRAY; Complete Time: 08:18 kdr 08/07 08:18 Order name: Knee Immobilizer: Left leg; Complete Time: 08:44 kdr 08/07 08:18 Order name: Crutches; Complete Time: 08:44 kdr Administered Medications: 07:33 Drug: Hydrocodone-Acetaminophen PO (7.5 mg-325 mg) 1 tabs Route: PO; ap3 08:44 Follow up: Response: Pain is decreased ap3 Disposition Summary: 08/07/22 08:20 Discharge Ordered Location: Home kdr Problem: new kdr Symptoms: have improved kdr Condition: Stable kdr Diagnosis - Fracture of patella kdr - Displaced comminuted fracture of left patella, sequela kdr Followup: kdr - With: Stu Avalos MD - When: 2 - 3 days - Reason: If symptoms return, Further diagnostic work-up, Recheck today's complaints, Continuance of care, Re-evaluation by your physician Discharge Instructions: - Discharge Summary Sheet kdr - Patellar Fracture, Adult kdr Forms: - Medication Reconciliation Form kdr - Thank You Letter kdr - Prescription Opioid Use kdr Prescriptions: - acetaminophen-codeine 300-30 mg Oral tablet - take 2 tablet by ORAL route every 4 to 6 hours As needed as needed for pain; 20 kdr tablet; Refills: 0, Product Selection Permitted Signatures: Dispatcher [employer] Asael Mckeon MD MD kdr Prokisch, Amanda, RN RN ap3 Tata Crump RN RN ha1
--- NOTE | 2022-08-07 08:21 | ER ---
Nurse's Notes [facility] Name: Mili Saeed Age: 66 yrs Sex: Female : 1955 Arrival Date: 08/07/2022 Time: 06:28 Bed 18 Private MD: Diagnosis: Fracture of patella;Displaced comminuted fracture of left patella, sequela Presentation: 08/07 06:51 Chief complaint: Patient states: I have a knee replacement on my left knee and I fell ha1 few hours ago and hurt my left knee. Coronavirus screen: Vaccine status: Patient reports receiving the 2nd dose of the covid vaccine. Moderna. Ebola Screen: No symptoms or risks identified at this time. Initial Sepsis Screen: Does the patient meet any 2 criteria? No. Patient's initial sepsis screen is negative. Does the patient have a suspected source of infection? No. Patient's initial sepsis screen is negative. Risk Assessment: Do you want to hurt yourself or someone else? Patient reports no desire to harm self or others. Onset of symptoms was August 07, 2022. 06:51 Method Of Arrival: Wheelchair ha1 06:51 Acuity: GIDEON 4 ha1 Triage Assessment: 06:55 General: Appears uncomfortable, Behavior is calm, cooperative. Pain: Complains of pain ha1 in left knee Pain does not radiate. Pain currently is 10 out of 10 on a pain scale. Quality of pain is described as throbbing, Pain began suddenly. EENT: No signs and/or symptoms were reported regarding the EENT system. Neuro: Level of Consciousness is awake, alert, obeys commands, Oriented to person, place, time, situation. Cardiovascular: Capillary refill < 3 seconds Patient's skin is warm and dry. Respiratory: Airway is patent Respiratory effort is even, unlabored, Respiratory pattern is regular, symmetrical. GI: No signs and/or symptoms were reported involving the gastrointestinal system. Derm: Skin is pink, warm \T\ dry. Musculoskeletal: Swelling present in left knee. Historical: - Allergies: 06:55 No Known Allergies; ha1 - PMHx: 06:55 High Cholesterol; Hypertension; ha1 - PSHx: 06:55 knee replacement; ha1 - Immunization history:: Adult Immunizations unknown. - Social history:: Smoking status: Patient denies any tobacco usage or history of. Screenin:00 Abuse screen: Denies threats or abuse. Denies injuries from another. Nutritional ha1 screening: No deficits noted. Tuberculosis screening: No symptoms or risk factors identified. 08:58 [facility] ED Fall Risk Assessment (Adult) History of falling in the last 3 months, ap3 including since admission Yes- single mechanical fall (1 pt) Confusion or Disorientation No (0 pts). Assessment: 07:12 General: Appears in no apparent distress. Behavior is calm, cooperative, appropriate ha1 for age. Pain: Complains of pain in left knee Pain began suddenly, 2 hours ago. Neuro: Level of Consciousness is awake, alert, obeys commands, Oriented to person, place, time, situation. Cardiovascular: Patient's skin is warm and dry. Respiratory: Airway is patent Respiratory effort is even, unlabored, Respiratory pattern is regular, symmetrical. Vital Signs: 06:51 BP 146 / 60; Pulse 73; Resp 16 S; Temp 97.8; Pulse Ox 98% on R/A; Weight 76.2 kg; ha1 Height 5 ft. 1 in. ; Pain 10/10; 06:51 Body Mass Index 31.74 (76.20 kg, 154.94 cm) ha1 06:51 Pain Scale: Adult ha1 ED Course: 06:32 Patient arrived in ED. ja2 06:55 Triage completed. ha1 07:12 Tata Crump, RN is Primary Nurse. ha1 07:13 Ice pack to injury. ha1 07:13 Arm band placed on right wrist. ha1 07:13 Patient has correct armband on for positive identification. Bed in low position. Call ha1 light in reach. Side rails up X2. Adult w/ patient. Pulse ox on. NIBP on. 07:17 Asael Orantes MD is Attending Physician. kdr 07:32 Primary Nurse role handed off by Tata Crump RN ap3 07:32 Ranjana Tierney, HÉCTOR is Primary Nurse. ap3 08:00 Knee Left 3 View XRAY In Process Unspecified. EDMS 08:19 Stu Avalos MD is Referral Physician. kdr 08:57 No provider procedures requiring assistance completed. Patient did not have IV access ap3 during this emergency room visit. Administered Medications: 07:33 Drug: Hydrocodone-Acetaminophen PO (7.5 mg-325 mg) 1 tabs Route: PO; ap3 08:44 Follow up: Response: Pain is decreased ap3 Medication: 08:58 VIS not applicable for this client. ap3 Outcome: 08:20 Discharge ordered by . kdr 08:58 Discharged to home via wheelchair, with crutches. ap3 08:58 Condition: good 08:58 Discharge instructions given to patient, Instructed on discharge instructions, follow up and referral plans. medication usage, crutch walking, Demonstrated understanding of instructions, follow-up care, medications, crutch walking, Prescriptions given X 1. 08:58 Patient left the ED. ap3 Signatures: Dispatcher [employer] EDMS Asael Orantes MD MD kdr Prokisch, Amanda, RN RN ap3 Charo Gottlieb Heidy, RN RN ha1 Corrections: (The following items were deleted from the chart) 07:00 06:51 Chief complaint: Patient states: I have a knee replacement on my right knee and I ha1 fell few hours ago and hurt my right knee. ha1
== END 2022-08-07 08:58 | disposition home or self-care (01) ==
LOC: ER 06:28
DX: S82.042A Displaced comminuted fracture of left patella, initial encounter for closed fracture (principal); Z96.652 Presence of left artificial knee joint
CPT/HCPCS: 99284